=== PATIENT | male | born 1980 | race Caucasian/White ===

== ENCOUNTER 2023-12-11 06:38 | Day surgery (SDC) | payer BC, OTHER ==
[2023-12-10 15:59] LABS: Absolute Lymphocytes (CBC) 3.1 K/uL (0.7-4.9); Hematocrit 42.8 % (39.6-49.0); Lymphocytes % 48.4 % (15.3-44.8); MCV 86.8 fL (80-100); MPV 7.3 fL (7.6-11.3); Platelets 223 thou/uL (152-406); RBC Red Blood Cell Count 4.93 M/uL (4.33-5.43)
--- NOTE | 2023-12-10 16:09 | RAD REPORT ---
EXAM DESCRIPTION: Abdifatah Mckeon (2 Views)12/10/2023 3:50 pm CLINICAL HISTORY: Preop for cholecystectomy COMPARISON: 2007 FINDINGS: The lungs appear clear of acute infiltrate. The heart is normal size IMPRESSION: No acute abnormalities displayed
[2023-12-11] MEDS: Ringers Lactate 1,000 ML IV ONE ×3 (07:00→07:29)
[2023-12-11] MEDS ORDERED: ROCURONIUM 50 MG/5 ML VIAL IV ONE (07:18)
[2023-12-11] MEDS ORDERED: propofoL 200 MG/20 ML VIAL IV ONE (07:18)
[2023-12-11] MEDS ORDERED: MIDAZOLAM HCL 2 MG/2 ML INJ ONE (07:18)
[2023-12-11] MEDS ORDERED: LIDOCAINE 2% MPF 5 ML VIAL ONE ×2 (07:18→07:43)
[2023-12-11] MEDS ORDERED: FENTANYL CITR 100 MCG/2 ML ONE ×2 (07:18→08:00)
[2023-12-11] MEDS: CEFOXITIN SODIUM 1 GM/VIAL ONE ×2 (07:20→07:29)
[2023-12-11] MEDS: BUPIVACAINE 0.5% PF 10 ML VIAL ONE ×2 (07:21→07:55)
[2023-12-11] MEDS ORDERED: dexAMETHasone 10 MG/ML VIAL ONE (07:32)
[2023-12-11] MEDS ORDERED: ONDANSETRON 4 MG/2 ML VIAL ONE (07:32)
[2023-12-11] MEDS ORDERED: KETOROLAC 30 MG/ML INJ ONE (07:32)
[2023-12-11] MEDS ORDERED: GLYCOPYRROLATE 0.2 MG/ML SYR ONE (08:35)
[2023-12-11] MEDS ORDERED: Phenylephrine HCl 10 MG/ML 1 ML VIAL ONE (08:35)
[2023-12-11] MEDS ORDERED: HYDROCODONE/APAP 7.5/325 MG TAB PO PRN (08:38)
--- NOTE | 2023-12-11 08:42 | P.OP ---
Date of Service: 12/11/23 Preop diagnosis: Chronic cholecystitis and cholelithiasis Postop diagnosis: Same Procedure performed: Laparoscopic cholecystectomy Surgeon: Harjit Bueno MD Anthropometrist: Kalee PIERRE Estimated blood loss: Minimal Specimen: Gallbladder Findings: As above Anesthesia: General Complications: None Drains: None Fluids and blood products: Nonapplicable Disposition: Recovery room Operative note: Patient brought to the OR and placed in the supine position. General anesthesia begun. Patient prepped and draped in usual sterile fashion. Marcaine 0.5% infiltrated locally. 15 blade used to make a 1 cm supraumbilical midline incision. Subcu tissue divided. Bleeding controlled cautery. Fascia identified and divided. #1 Vicryl stay suture placed. Peritoneal cavity entered with sharp and blunt dissection. 12 mm trocar placed into the peritoneal cavity under direct vision. Pneumoperitoneum established. Then 3 5 mm trocars placed. 1 trocar placed in the epigastric region just to the right of midline. 2 trocars placed in the right subcostal region. Laparoscopy revealed chronic inflammation of the gallbladder. Fundus identified and retracted superiorly. Infundibulum identified retracted inferolaterally. Cystic duct and cystic artery clearly identified with blunt dissection. Clips placed and both structures divided. Cautery used to remove the gallbladder from the liver bed. Bleeding on the liver controlled with cautery. Gallbladder retrieved through the umbilicus via Endo Catch bag. Right upper quadrant irrigated. Effluent clear and no evidence of bleeding or bile leakage appreciated. All trocars removed under direct vision. Stay sutures tied to each other to reapproximate the fascial defect. Subcutaneous wounds irrigated and bleeding controlled cautery. 3-O chromic used to approximate subcutaneous tissue and close skin. Sterile dressing applied and patient awakened. Patient taken to recovery room in good general condition. CC: Dr. Tineo's office
[2023-12-11] MEDS: HYDROMORPHONE HCL 1 MG/ML INJ ONE ×2 (09:12→09:26)
[2023-12-11] MEDS ORDERED: HYDROCODONE/APAP 10/325 TAB ONE (10:12)
[2023-12-11 10:51] VITALS: TEMP 97
[2023-12-11 12:53] VITALS: BP 158/90; O2SAT 97
--- NOTE | 2023-12-14 17:06 | EKG ---
Test Date: 2023-12-10 Test Time: 16:30:28 Tile Finisher: CROW MEASUREMENT RESULTS: Intervals: Rate: 47 DE: 164 QRSD: 104 QT: 432 QTc: 382 Assonet: P: 54 DE: 164 QRS: 55 T: 35 INTERPRETIVE STATEMENTS: Marked sinus bradycardia Abnormal ECG No previous ECG available for comparison Electronically Signed On 12-14-23 16:55:50 [employer] by Berny Gallardo
== END 2023-12-11 11:28 | disposition home or self-care (01) ==
LOC: OR 06:38
PROVIDERS: ATTEND Surgery
PROC: 0FT44ZZ Resection of Gallbladder, Percutaneous Endoscopic Approach (ICD-10-PCS; principal; 2023-12-11 07:30)
DX: K80.10 Calculus of gallbladder with chronic cholecystitis without obstruction (principal); Z88.0 Allergy status to penicillin
CPT/HCPCS: 93005; 85025; 36415; 88304; 83690; 71046; 47562; J2704; J2371; J2001 ×2; J2250; J3010 ×2; J1100; J1170; J0694; J2405; J7120